=== PATIENT | male | born 1970 | race Caucasian/White ===

== ENCOUNTER 2017-12-25 15:04 | Observation (INO) ==
[2017-12-25 15:52] LABS: Basophils % 0.6 % (0.0-0.8); Eosinophils # 0.3 10*3/uL (0.0-0.87); Eosinophils % 4.3 % (0.00-10.9); Hemoglobin 14.7 GM/DL (14.0-18.0); Immature Granulocytes % 0.3 %; Immature Granulocytes Absolute 0.02 #; Lymphocytes # 1.9 10*3/uL (1.4-4.0); Lymphocytes % 30.4 % (21.2-54.2); Mean Corpuscular Hemoglobin 30 PG (27-34); Mean Platelet Volume 10.1 FL (9.6-12.0); Monocytes # 0.5 10*3/uL (0.11-0.8); Monocytes % 7.5 % (1.7-12.7); Neutrophils # 3.6 10*3/uL (1.4-7.4); Neutrophils % 56.9 % (38.7-73.9); Platelet Count 238 T/CUMM (130-400); Red Blood Count 4.83 MC/CUMM (3.8-5.5); Red Cell Distribution Width 12.4 % (9.3-17.3); White Blood Count 6.3 T/CUMM (4-12)
[2017-12-25 16:03] LABS: INR 0.9; Partial Thromboplastin Time 26.1 SECS (0-40)
[2017-12-25 16:39] LABS: Bilirubin,Total 0.4 MG/DL (0.2-1.0); Calcium 8.8 MG/DL (8.5-10.1); Osmolality,Calculated 280.3 MOS/KG (273-304); Potassium 4.3 MMOL/L (3.5-5.1); Total Protein 7.6 G/DL (6.4-8.3)
[2017-12-25] MEDS ORDERED: ASPIRIN 325 MG TABLET PO STA (18:00)
[2017-12-25] MEDS ORDERED: NITROGLYCERIN SL 0.4 MG TABLET SL STA (18:00)
[2017-12-25] MEDS ORDERED: MAGNESIUM SULF RIDER 2 GM in PREMIX 1 EACH IV PRN ×2 (18:23→20:29)
[2017-12-25] MEDS ORDERED: ZALEPLON 5 MG CAPSULE PO PRN (18:23)
[2017-12-25] MEDS ORDERED: DOCUSATE SODIUM 100 MG CAPSULE PO PRN (18:23)
[2017-12-25] MEDS ORDERED: MAGNESIUM SULF RIDER 4 GM in PREMIX 1 EACH IV PRN ×2 (18:23→20:29)
[2017-12-25] MEDS ORDERED: ACETAMINOPHEN 325 MG TABLET PO PRN (18:23)
[2017-12-25] MEDS ORDERED: ONDANSETRON 4 MG/2 ML VIAL IV PRN ×2 (18:23→20:29)
[2017-12-25] MEDS ORDERED: NITROGLYCERIN SL 0.4 MG TABLET SL ONE (19:11)
[2017-12-25] MEDS ORDERED: ASPIRIN 325 MG TABLET ONE (19:11)
[2017-12-25] MEDS ORDERED: ENOXAPARIN 40 MG/0.4 ML SYRINGE SUBCUT SCH (21:00)
[2017-12-25] MEDS ORDERED: ROSUVASTATIN 20 MG TABLET PO SCH (21:00)
[2017-12-25] MEDS: TICAGRELOR 90 MG TABLET PO SCH (23:55)
[2017-12-26 04:45] LABS: Basophils # 0.1 10*3/uL (0.0-0.2); Basophils % 0.7 % (0.0-0.8); Eosinophils # 0.3 10*3/uL (0.0-0.87); Eosinophils % 4.6 % (0.00-10.9); Hematocrit 40.2 VOL% (42.0-52.0); Hemoglobin 13.5 GM/DL (14.0-18.0); Immature Granulocytes % 0.3 %; Immature Granulocytes Absolute 0.02 #; Lymphocytes # 2.5 10*3/uL (1.4-4.0); Lymphocytes % 37.5 % (21.2-54.2); Mean Corpuscular HGB Conc 33.6 GM/DL (32-36); Mean Corpuscular Hemoglobin 30 PG (27-34); Mean Corpuscular Volume 88.9 FL (87-102); Mean Platelet Volume 10.5 FL (9.6-12.0); Monocytes # 0.7 10*3/uL (0.11-0.8); Monocytes % 9.6 % (1.7-12.7); Neutrophils # 3.2 10*3/uL (1.4-7.4); Neutrophils % 47.3 % (38.7-73.9); Platelet Count 217 T/CUMM (130-400); Red Blood Count 4.52 MC/CUMM (3.8-5.5); Red Cell Distribution Width 12.4 % (9.3-17.3); White Blood Count 6.7 T/CUMM (4-12)
[2017-12-26 05:19] LABS: Calcium 9.1 MG/DL (8.5-10.1); Osmolality,Calculated 281.1 MOS/KG (273-304)
[2017-12-26 08:36] VITALS: BP 113/77
[2017-12-26] MEDS ORDERED: VALSARTAN 80 MG TABLET PO SCH (09:00)
[2017-12-26] MEDS ORDERED: ASPIRIN EC 81 MG TABLET PO SCH (09:00)
[2017-12-26] MEDS ORDERED: PANTOPRAZOLE 40 MG TABLET PO SCH ×2 (09:00)
[2017-12-26] MEDS: TICAGRELOR 90 MG TABLET PO SCH (09:33)
[2017-12-26] MEDS ORDERED: CARVEDILOL 3.125 MG TABLET PO SCH (21:00)
== END 2017-12-26 12:04 | disposition home or self-care (01) ==
LOC: N.EDINP 15:04 → N.ED 15:04 → N.TELES 19:10
PROVIDERS: ADMIT Internal Medicine Clinical Cardiac Electrophysiology; ATTEND Internal Medicine Clinical Cardiac Electrophysiology

== ENCOUNTER 2021-04-21 17:08 | Observation (INO) ==
[2021-04-21 17:53] LABS: Basophils # 0.1 10*3/uL (0.0-0.2); Basophils % 0.5 % (0.0-0.8); Eosinophils # 0.3 10*3/uL (0.0-0.87); Eosinophils % 2.2 % (0.00-10.9); Hematocrit 47.7 VOL% (42.0-52.0); Hemoglobin 16.3 GM/DL (14.0-18.0); Immature Granulocytes Absolute 0.14 #; Lymphocytes # 1.5 10*3/uL (1.4-4.0); Lymphocytes % 10.7 % (21.2-54.2); Mean Corpuscular HGB Conc 34.2 GM/DL (32-36); Mean Corpuscular Volume 89.8 FL (87-102); Mean Platelet Volume 9.7 FL (9.6-12.0); Monocytes % 7.1 % (1.7-12.7); Neutrophils % 78.5 % (38.7-73.9); Platelet Count 237 T/CUMM (130-400); Red Blood Count 5.31 MC/CUMM (3.8-5.5); White Blood Count 14.3 T/CUMM (4-12)
[2021-04-21 18:17] LABS: Albumin 4.6 G/DL (3.4-5.0); Bilirubin,Total 1.1 MG/DL (0.2-1.0); Potassium 4.3 MMOL/L (3.5-5.1); Total Protein 7.9 G/DL (6.4-8.2)
[2021-04-21] MEDS ORDERED: SODIUM CHLORIDE 0.9% 1,000 ML IV STA (18:53)
[2021-04-21] MEDS ORDERED: MORPHINE 4 MG/1 ML VIAL IV STA (18:53)
[2021-04-21] MEDS ORDERED: ENOXAPARIN 30 MG/0.3 ML SYRINGE SUBCUT STA (20:07)
[2021-04-21] MEDS ORDERED: ACETAMINOPHEN 325 MG TABLET PO PRN (20:10)
[2021-04-21] MEDS ORDERED: ONDANSETRON 4 MG/2 ML VIAL IV PRN (20:10)
[2021-04-21] MEDS ORDERED: clonazePAM 0.5 MG TABLET PO PRN (20:13)
[2021-04-21] MEDS: ENOXAPARIN 80 MG/0.8 ML SYRINGE SUBCUT SCH (20:37)
[2021-04-21] MEDS: SODIUM CHLORIDE 0.9% 1,000 ML IV SCH (20:45)
[2021-04-21] MEDS ORDERED: ROSUVASTATIN 20 MG TABLET PO SCH (21:00)
[2021-04-21] MEDS: carvediloL 3.125 MG TABLET PO SCH (23:25)
[2021-04-21] MEDS: DOCUSATE SODIUM 100 MG CAPSULE PO SCH (23:28)
[2021-04-22] MEDS: SODIUM CHLORIDE 0.9% 1,000 ML IV SCH (07:50)
[2021-04-22] MEDS: DOCUSATE SODIUM 100 MG CAPSULE PO SCH (08:17)
[2021-04-22] MEDS: carvediloL 3.125 MG TABLET PO SCH (08:17)
[2021-04-22] MEDS ORDERED: PANTOPRAZOLE 40 MG TABLET PO SCH (09:00)
[2021-04-22] MEDS ORDERED: ASPIRIN EC 81 MG TABLET PO SCH (09:00)
[2021-04-22] MEDS ORDERED: ENOXAPARIN 80 MG/0.8 ML SYRINGE SUBCUT SCH (09:00)
[2021-04-22] MEDS: ENOXAPARIN 80 MG/0.8 ML SYRINGE SUBCUT SCH (09:58)
[2021-04-22 12:00] VITALS: BP 126/75
== END 2021-04-22 13:28 | disposition home or self-care (01) ==
LOC: N.ED 17:08 → N.EDINP 17:08 → SUATTDRO 21:26 → N.EDINP 04-22 03:35 → N.3E 04-22 04:22
PROVIDERS: ADMIT Family Medicine; ATTEND Internal Medicine